=== PATIENT | female | born 1955 | race Caucasian/White ===

== ENCOUNTER 2022-08-10 10:27 | Emergency (ER) | payer OTHER ==
[~2022-08-10] VITALS: Ht 154.9 cm; Wt 98.4 kg
[2022-08-10 10:39] VITALS: BP 159/130
[2022-08-10] MEDS ORDERED: ACET-2079 PO (12:37)
[2022-08-10] MEDS ORDERED: LIDO1ADH23 TP (12:37)
== END 2022-08-10 13:00 | disposition home or self-care (01) ==
LOC: EDH 10:27
DX: S22.42XA Multiple fractures of ribs, left side, initial encounter for closed fracture (principal); M81.0 Age-related osteoporosis without current pathological fracture; Z98.890 Other specified postprocedural states; W18.39XA Other fall on same level, initial encounter; Y93.89 Activity, other specified; Y92.89 Other specified places as the place of occurrence of the external cause; Y99.8 Other external cause status
CPT/HCPCS: 71101; 93005